=== PATIENT | female | born 1965 | race Caucasian/White ===

== ENCOUNTER → 2020-02-16 | Outpatient (CLI) | payer OTHER | END | disposition home or self-care (01) | LOC: GI 07:46 | DX: K31.9 Disease of stomach and duodenum, unspecified (principal); K21.9 Gastro-esophageal reflux disease without esophagitis; E11.9 Type 2 diabetes mellitus without complications; E78.00 Pure hypercholesterolemia, unspecified; E03.9 Hypothyroidism, unspecified; F32.9 Major depressive disorder, single episode, unspecified; F41.9 Anxiety disorder, unspecified; G47.30 Sleep apnea, unspecified; Z98.890 Other specified postprocedural states; Z79.899 Other long term (current) drug therapy; Z88.8 Allergy status to other drugs, medicaments and biological substances; Z79.4 Long term (current) use of insulin ==

== ENCOUNTER 2020-05-20 07:24 | Inpatient (IN) | payer OTHER ==
[~2020-05-20] VITALS: Ht 160 cm; Wt 143.8 kg
--- NOTE | ~2020-05-20 | O ---
[facility] [place] [address] OPERATIVE REPORT Name: MOHINDER WOODS Room #: 450-P [facility] M.R.#: [id number] Admission: 05/20/20 Attend Phys: Martin Carter MD Discharge: 05/22/20 Date of : 67 Report #: [id number] THIS REPORT FOR: cc: Moises Segura MD, Dean L. MD Joseph, Sigi P. MD ~ CC: Moises Carter DATE OF SERVICE: 05/20/2020 PREOPERATIVE DIAGNOSES: 1. Morbid obesity. 2. Hyperlipidemia. 3. Hypertension. 4. Type 2 diabetes. 5. Sleep apnea. 6. Arthritis. POSTOPERATIVE DIAGNOSES: 1. Morbid obesity. 2. Hyperlipidemia. 3. Hypertension. 4. Type 2 diabetes. 5. Sleep apnea. 6. Arthritis. OPERATIVE PROCEDURE DONE: 1. Laparoscopic Valentina-en-Y gastric bypass. 2. Upper GI endoscopy. OPERATING SURGEON: Martin Carter MD INDICATIONS FOR THE PROCEDURE: The patient is a 54-year-old female who presented with features of morbid obesity and the above listed comorbidities. The patient was noted to have a weight of 150 kilograms with a BMI of 58. With the above listed comorbidities, the patient was advised laparoscopic vertical sleeve gastrectomy and possible hiatal hernia repair. The patient showed understanding and agreed to proceed. DESCRIPTION OF PROCEDURE: After explaining to the patient in detail and informed consent was obtained, the patient was identified in the preoperative holding area. The patient was transferred to the operating room and was placed in supine position. Sequential compressive devices were placed for DVT prophylaxis. Preoperative antibiotics were given. After induction of [facility] [address] [place] [address] OPERATIVE REPORT Name: MOHINDER WOODS Room #: 450-P [facility] .R.#: [id number] Admission: 05/20/20 Attend Phys: Martin Carter MD Discharge: 05/22/20 Date of : 67 Report #: [id number] anesthesia, the abdomen was prepped and draped in a sterile fashion. Through a left upper quadrant 1 cm incision and using Optiview technique, peritoneal cavity was entered and pneumoperitoneum was created. Thereafter, under direct vision, another 5 mm trocar was placed through a left mid abdomen, another 12 mm trocar was placed through a right mid abdomen, another 5 mm trocar was placed in the right subcostal region, and through a 1 cm incision in the epigastrium, a Walter retractor was introduced and the left lobe of the liver was retracted. Upon initial inspection, the patient did not have any obvious features of a hiatal hernia. I divided the gastrohepatic omentum. I then divided the medial fatty tissue with the small blood vessels along the lesser curve at the junction of the proximal and middle third of the stomach using an Endo-JOHNATHON white load stapler. I then fired a single green load transversely at this point on the stomach using an Endo-JOHNATHON green load stapler with Ivy-Strips. I then dissected the angle of His. I also did a posterior dissection to release all the attachments of the stomach on the pancreas. I then fired the stapler superiorly up to the angle of His with a 2 Endo-JOHNATHON green load stapler with Ivy-Strips to create completion of the pouch. Once this was completed, I then divided the greater omentum in the middle using the EnSeal. The small bowel was identified at the ligament of Treitz and was measured downstream for about 50 cm. This loop of bowel was then brought up onto the gastric pouch. An enterotomy was made at this point. A posterior gastrotomy was made on the gastric pouch, and the posterior gastrojejunostomy was made using Endo-JOHNATHON blue load stapler with anastomosis size of about 2.5-3 cm. The common gastroenterostomy was then closed using 2 layers of Strattice sutures. I then divided the biliary limb just proximal to the anastomosis using an Endo-JOHNATHON blue load stapler with Ivy-Strips. I then measured the Valentina limb for about 125 cm downstream. An enterotomy was made at this point. Another enterotomy was made on the biliary limb and a [id number] jejunojejunostomy was made using a JOHNATHON blue load stapler. The blue load stapler with Ivy-Strips was used to close the common enteroenterostomy. Care was taken not to narrow down the lumen at the anastomosis. Jejunojejunostomy defect was then closed using 2-0 Ethibond sutures. I then performed an upper GI endoscopy. The scope was introduced into the esophagus, was gradually advanced into the gastric pouch and the pouch appeared to be of adequate size. The Valentina limb was entered easily. An air leak test was performed by instilling air into the stomach and by irrigation of fluid along the staple line. There was no leak that was noted. The stomach was suctioned out, scope was removed. I then thoroughly irrigated the upper abdomen. Absolute hemostasis was ensured. Approximately about 10 mL of lidocaine and Marcaine mix was instilled under the left hemidiaphragm. The 12 mm port site incision was closed with 0 Vicryl for the fascia. The Walter retractor was removed. Skin was closed with 4-0 Monocryl for all the incisions. Dermabond was applied. The patient was stable at the end of the procedure. The patient was awoken from anesthesia and was transferred to the recovery room in stable condition. [facility] [address] [place] [address] OPERATIVE REPORT Name: MOHINDER WOODS Room #: 450-P [facility].#: [id number] Admission: 05/20/20 Attend Phys: Martin Carter MD Discharge: 05/22/20 Date of : 67 Report #: [id number] ESTIMATED BLOOD LOSS: Approximately 20 mL. CONDITION OF THE PATIENT: Stable. FLUIDS GIVEN: Per anesthesia notes. SPECIMEN SENT: None. COMPLICATIONS: None. ANESTHESIA: General anesthesia. By: [id number] Martin Carter MD /nt
[~2020-05-20 07:24] MED LIST: ALLEGRA-D 24 H1 EACH PO; ASA81BEC PO; ASPIR 8181 M1 PO; CELEBREX 200 M200 M1 PO; CITALOPRAM HBR40 MG PO; FUROSEMIDE 40 M40 M1 PO; GLUCOPHAGE1000 MG PO; HARD NAILS2500 MCG PO; KLOR-CON 1010 MEQ PO; LANTUS SUBQ; LEVOTHYROXINE112 MCG PO; NEURONTIN100 MG PO; NEXIUM40 MG PO; PROBIOTIC1 EAC3 PO; TIROSINT125 MCG PO; TRULICITY1.5 MG/0.5 SUBQ; VENLAFAXINE HCL25 MG PO; VITAMIN D3 PO; ZOCOR20 MG PO
[2020-05-20 08:09] LABS: HEMATOCRIT 41.6 % (37.0-47.0); HEMOGLOBIN 13.9 gm/dL (12.0-15.0); MCH 30.5 pg (26.0-34.0); MCHC 33.4 g/dL (28.0-37.0); MCV 91.1 fL (80.0-100.0); RBC 4.57 mil/uL (4.20-5.00); RDW 14.7 % (10.5-14.5); WBC 7.4 thou/uL (4.0-11.0)
[2020-05-20 08:24] LABS: CALCIUM 9.5 mg/dL (8.5-10.1); CREATININE 0.7 mg/dL (0.6-1.0); POTASSIUM 3.8 mmol/L (3.5-5.1)
[2020-05-20 08:30] LABS: ALBUMIN 4.2 g/dL (3.4-5.0); TOTAL BILIRUBIN 0.6 mg/dL (0.2-1.0); TOTAL PROTEIN 8.5 g/dL (6.4-8.2)
[2020-05-20 08:51] VITALS: BP 134/81
[2020-05-20 16:28] VITALS: BP 158/85
--- NOTE | 2020-05-20 19:38 | NUR ---
PT ARRIVED TO FLOOR FROM RR PER BED AT 1625 IN STABLE CONDITION.ADMISSION HX, ASSESSMENT AND CAREPLAN COMPLETED.VSS.PT C/O SURGICAL SITE PAIN BUT TOO SOON TO GIVE PAIN MED.PT REPOSITIONED FOR COMFORT.PT UP TO BR WITH SBA TO VOID. GOOD ENDURANCE NOTED.DR KIMBROUGH ROUNDED ON PT LATER THIS EVENING.ORDER NOTED. REPORT OFF NOC KIRIT.
[2020-05-20 20:26] VITALS: BP 172/96
[2020-05-21 00:18] VITALS: BP 170/99
[2020-05-21 01:06] LABS: GLYCOHEMOGLOBIN (HGB A1C) 5.4 % (4.8-5.6)
--- NOTE | 2020-05-21 02:07 | NUR ---
PATIENT AOX4 MAKES NEEDS KNOWN.PAIN CONTROLLED THIS SHIFT. PATIENT HAS FOUR LAP SITE WITH DERMA LEUNG, ONE ON LEFT LOWER ABD HAS GAUZE, GAUZE IS C/D/I. PATIENT AMBULATED IN THE UNIT 3 TIMES. PATIENT C/O INCREASED PAIN CALLED D/T HIGH BLOOD PRESSURE AND PAIN NEW ORDER OF TORDOL 30 MG Q 6 HOURS. ORDER TO MONITOR BLOOD PRESURE TONIGHT. PATIENT LAST BLOOD PRESSURE WAS 170/99,86. SCD ON. PATIENT HAS C PAP ON. PATIENT IN BED SLEEP AT THIS TIME BREATHING REGULAR AND UNLABOURED.
[2020-05-21 07:11] LABS: HEMATOCRIT 41.4 % (37.0-47.0); HEMOGLOBIN 13.6 gm/dL (12.0-15.0); MCH 30.2 pg (26.0-34.0); MCV 91.5 fL (80.0-100.0); RBC 4.52 mil/uL (4.20-5.00); WBC 13.5 thou/uL (4.0-11.0)
[2020-05-21 07:18] VITALS: BP 188/106
[2020-05-21 07:27] LABS: ALBUMIN 3.9 g/dL (3.4-5.0); CALCIUM 8.9 mg/dL (8.5-10.1); CREATININE 0.7 mg/dL (0.6-1.0); MAGNESIUM 1.8 mg/dL (1.8-2.4); POTASSIUM 3.4 mmol/L (3.5-5.1); TOTAL BILIRUBIN 0.4 mg/dL (0.2-1.0); TOTAL PROTEIN 8.2 g/dL (6.4-8.2)
--- NOTE | 2020-05-21 11:08 | NUR ---
RD consult received. Pt s/p jaleesa en y gastric bypass 05/20 for obesity treatment. BMI 56.3. Spoke with pt this am, has been having sips of liquids. Has gastric sleeve diet order in place. Pt reports has been working on lifestyle diet changes since 08/2019. Start wt was 376 lb, dropped to 372 in 10/2019 and states presurgery wt was 318 lb. Goes to indoor pool for exercise. States may have allergy to whey protein, so has been using Farmia ultra filtered milk protein drinks (still contains whey), but does much better with this. Has diet information for post surgery diet progression. Since will not drink Premier or Ensure Max, ok for family to bring in Farmia for small po trials. Pt hopes to go home tomorrow. Low nutrition risk
--- NOTE | 2020-05-21 11:23 | NUR ---
met with patient and spouse at bedside. [employer] patient works at [employer]. She is inpatient at [facility] for elective sx lap gastric bypass. 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 PCP Dr Segura, has health insurance, supportive family. Patient aniticipates no needs at id.
[2020-05-21 13:39] VITALS: BP 171/97
[2020-05-21 17:22] VITALS: BP 185/99
[2020-05-21 20:00] VITALS: BP 165/98
--- NOTE | 2020-05-21 20:30 | NUR ---
PT A&OX4, VSS, PAIN IN ABD. C/O NAUSEA. HYPERTENSION. MEDS GIVEN FOR ALL. PATIENT AMBULATED WITH THROUGH ALMEIDA. NEW IV PLACED RIGHT FOREARM. PATIENT TOLERATING DIET. NO SIGNS OF DISTRESS.
[2020-05-21 23:53] VITALS: BP 173/93
--- NOTE | 2020-05-22 02:23 | NUR ---
PATIENT AMBULATED IN THE UNIT X1 THIS SHIFT. PATIENT AMBULATES WITH STEADY GAITS. PATIENT HAS 5 LAB SITE NO S/S OF INFECTION ON 4 SITES AND ONE SITE ON RIGHT LOWER ABD HAS A DRESSING, DRESSING IS C/D/I. PAIN CONTROLLED THIS SHIFT. FALL PRECAUTION WITHIN REACH. PATIENT IN BED ASLEEP AT THIS TIME BREATHING REGULAR AND UNLABOURED.
[2020-05-22 05:42] VITALS: BP 170/92
[2020-05-22 07:15] VITALS: BP 160/83
--- NOTE | 2020-05-22 10:42 | NUR ---
ASSUMED CARE OF PATIENT AT APPROX. 0700. ASSESSMENT CHARTED. MEDS GIVEN PER MAR. VSS. PATIENT IS A&OX4 AND MAKES NEEDS KNOWN. PATIENT IS SBA W IV POLE. FLUIDS INFUSING ON R FA, INTACT W NO ISSUES. PATIENT TOOK A SHOWER THIS AM AND DID WELL. DR. KURTZ SAW PATIENT AND DISCUSSED POSSIBLE D/C TODAY. ALL 5 OF PATIENT LAPROSCOPIC SITES ARE C/D/I. PATIENT STARTED FULL LIQUIDS TODAY AND IS TOLERATING WELL. C/O PAIN UNRELIEVED BY HYDROCODONE. PATIENT VOICES NO OTHER NEEDS BESIDE PAIN. FALL PRECAUTIONS REMAIN IN PLACE. WILL CONTINUE TO MONITOR AND FOLLOW PLAN OF CARE.
[2020-05-22 11:20] VITALS: BP 160/83
--- NOTE | 2020-05-22 14:00 | NUR ---
PATIENT LEFT UNIT AT APPROX 1355, W SPOUSE. IV DISCONTINUED W NO ISSUES. NO COMPLAINTS AT TIME OF DISCHARGE
[2020-05-22 14:04] VITALS: BP 160/83
== END 2020-05-22 14:07 | disposition home or self-care (01) | DRG 989 ==
LOC: EDSTATUS 07:24 → TBA 07:25 → OR 08:13 → TBA 16:15 → 4W 16:15
PROVIDERS: ADMIT Surgery; ATTEND Surgery
PROC: 0DJ08ZZ Inspection of Upper Intestinal Tract, Via Natural or Artificial Opening Endoscopic (ICD-10-PCS; principal; 2020-05-20)
PROC: 0DBA4ZZ Excision of Jejunum, Percutaneous Endoscopic Approach (ICD-10-PCS; principal; 2020-05-20)
DX: E66.01 Morbid (severe) obesity due to excess calories (principal); E78.5 Hyperlipidemia, unspecified; E11.9 Type 2 diabetes mellitus without complications; M19.90 Unspecified osteoarthritis, unspecified site; I10 Essential (primary) hypertension; Z68.43 Body mass index [BMI] 50.0-59.9, adult
CPT/HCPCS: 10047; 50010; 50101; 50222; 50386; 50555; 50739; 50740; 51489; 52265; 52266; 53307; 54022; 54118; 55326; 56462; 56525; 56526; 56531; 57092; 62110; 62900; 70005